=== PATIENT | male | born 1965 | race Caucasian/White ===

== ENCOUNTER 2018-08-16 17:55 | Observation (INO) | payer BC, OTHER ==
[~2018-08-16] VITALS: Ht 170.2 cm; Wt 86.2 kg
[~2018-08-16 17:55] MED LIST: ALBU8.5H2 IH; CEPH500C PO; CHOL10003 PO; FAMO20TA5; FEXO180T PO; FLUT1DIS27; FLUT1DIS27 IH; FOLI10PO5 MC; HYDR-34 PO; HYDR-3583 PO; HYDR1TAB PO; LEVO500T69 PO; METR375C PO; METR500T PO; MTX2.5T PO; NF-METHYLP PO; OMEG1CAP51 PO; PANT40TA2 PO; PRD20T; SMV20T PO; SULF1TAB38 PO; TEST90SO TD; TRAM-21 PO; XOLAIR INJ; ZOLAIR IM; [UNRECOGNIZED DRUG - OTHER] IJ; [UNRECOGNIZED DRUG - OTHER] PO
--- OUTSIDE RECORDS SUMMARY | 2018-08-16 18:00 | XMS REPORT | Encounter Summary ---
Author Author [facility] Organization [facility] Address Unknown Phone Unavailable Care Team Providers Care V Belt Mold Assembler And Curer Name Role Phone June Monteiro MD PCP Encounter Details Date Type Department Care Team Description 08/10/2018 Telephone [facility] Blanka Posada LPN [facility] [address] [facility] [address] [place] [address] Social History Tobacco Use Types Packs/Day Years Used Date Never Smoker Smokeless Tobacco: Never Used Sex Assigned at Date Recorded Not on file as of this encounter Miscellaneous Notes * Telephone Encounter - Blanka Posada LPN - 08/10/2018 3:27 PM CDT Spoke to patient this morning as his specialty pharmacy called to verify our address to ship his Xolair. Patient states his Xolair gets shipped to Dr. Weldon' s office. Patient will call his specilaty office to get redirected. in this encounter Plan of Treatment Date Type Specialty Care Team Description 08/24/2018 Imaging Pulmonology Appointment 08/24/2018 Office Visit Pulmonology Lowell Cronin MD [address] [facility] [address] [place] [address] [phone] as of this encounter Visit Diagnoses Not on filein this encounter
--- OUTSIDE RECORDS SUMMARY | 2018-08-16 18:00 | XMS REPORT | Encounter Summary ---
Author Author [facility] Organization [facility] Address Unknown Phone Unavailable Care Team Providers Care Upsetter Helper Name Role Phone June Monteiro MD PCP Reason for Visit * Reason Comments Medication Refill Encounter Details Date Type Department Care Team Description 08/15/2018 Refill [facility] Lowell Cronin MD Medication Refill [facility] [address] [place] [address] [address] [facility] [address] [place] [address] [place] [address] [phone] Social History Tobacco Use Types Packs/Day Years Used Date Never Smoker Smokeless Tobacco: Never Used Sex Assigned at Date Recorded Not on file as of this encounter Plan of Treatment Date Type Specialty Care Team Description 08/24/2018 Imaging Pulmonology Appointment 08/24/2018 Office Visit Pulmonology Lowell Cronin MD [address] [facility] [address] [place] [address] [phone] as of this encounter Visit Diagnoses Diagnosis Uncomplicated severe persistent asthma - Primary
--- OUTSIDE RECORDS SUMMARY | 2018-08-16 18:00 | XMS REPORT | Encounter Summary ---
Author Author [facility] Organization [facility] Address Unknown Phone Unavailable Care Team Providers Care Sales Engagement Manager Name Role Phone June Monteiro MD PCP Encounter Details Date Type Department Care Team Description 06/29/2018 Telephone [facility] Lowell Cronin MD [facility] [address] [place] [address] [place], [place] [id number] Social History Tobacco Use Types Packs/Day Years Used Date Never Smoker Smokeless Tobacco: Never Used Sex Assigned at Date Recorded Not on file as of this encounter Miscellaneous Notes * Telephone Encounter - Jennie Wong MA - 06/29/2018 3:55 PM CDT Pt stated that he gets his Xolair through [facility], our office handles the actual prescription. The [facility] pharmacy has a supply of sterile water and they would just need an order for it for pt to have for Dr. Weldon's office so he can get his Xolair shot. Order placed and sent to pharmacy. in this encounter Plan of Treatment Date Type Specialty Care Team Description 08/24/2018 Imaging Pulmonology Appointment 08/24/2018 Office Visit Pulmonology Lowell Cronin MD [address] [facility] [address] [place] [address] [phone] as of this encounter Visit Diagnoses Not on filein this encounter
--- OUTSIDE RECORDS SUMMARY | 2018-08-16 18:00 | XMS REPORT | Clinical Summary ---
Author Author [facility] Organization [facility] Address Unknown Phone Unavailable Care Team Providers Care Apparatus Repair Mechanic Name Role Phone June oMnteiro MD PCP Allergies Active Allergy Reactions Severity Noted Date Comments Aspirin Other (See Comments) 08/07/2015 breathing difficulties Solu-Medrol Mix-O-Vial 08/07/2015 Current Medications Prescription Sig. Disp. Refills Start End Date Status Date cholecalciferol, vitamin Take 1,000 Units by mouth Active D3, 1,000 unit tablet daily. omega 3 fish oil (SEA Take 1,000 mg by mouth 3 Active OMEGA) 500-1,000 mg (three) times a day. capsule traMADol (ULTRAM) 50 mg Take 50 mg by mouth every Active tablet 6 (six) hours as needed for pain. azelastine (ASTELIN) 137 Use 2 sprays in each 90 mL 3 03/02/20 Active mcg (0.1 %) nasal spray nostril 2 (two) times a 18 day. Use in each nostril as directed azithromycin (ZITHROMAX Take 1 tablet (250 mg 90 tablet 3 03/02/20 Active Z-CAITLIN) 250 MG tablet total) by mouth daily. 18 albuterol Inhale 2 puffs every 6 3 Inhaler 3 03/02/20 Active (PROAIR/PROVENTIL/VENTOLI (six) hours as needed for 18 N) 90 mcg/actuation HFA wheezing. inhalerIndications: Moderate persistent asthma without complication fluticasone-salmeterol Inhale 1 puff 2 (two) 180 each 3 03/02/20 Active (ADVAIR DISKUS) 500-50 times a day. 18 19 mcg/dose DISKUSIndications: Moderate persistent asthma without complication ipratropium-albuterol Inhale 3 mL via nebulizer 1080 mL 3 03/02/20 Active (DUO-NEB) 0.5-3 mg/3 mL 4 (four) times a day. 18 nebulizerIndications: Bronchi Muscle Spasm resulting from COPD methylPREDNISolone Take 0.5 tablets (4 mg 90 tablet 3 03/02/20 Active (MEDROL) 8 MG tablet total) by mouth daily. 18 Patient will take as directed. pantoprazole (PROTONIX) Take 1 tablet (40 mg 90 tablet 3 03/02/20 Active 40 MG tablet total) by mouth daily. 18 omalizumab (XOLAIR) 150 INJECT 375MG 6 vial 11 07/27/20 Active mg injectionIndications: SUBCUTANEOUSLY EVERY 2 18 Moderate persistent WEEKS asthma without complication water, sterile (STERILE Use for Xolair 20 mL 6 08/15/20 Active WATER, PRESERVATIVE injections. 18 FREE,) injectionIndications: Uncomplicated severe persistent asthma STERILE WATER, As directed for 02/13/20 08/15/20 Discontin PRESERVATIVE FREE, reconstitution for 14 18 ued injection Xolair. omalizumab (XOLAIR) 150 INJECT 375MG 6 vial 11 11/13/19 07/27/20 Discontin mg injectionIndications: SUBCUTANEOUSLY EVERY 2 18 18 ued Moderate persistent WEEKS asthma without complication Active Problems Problem Noted Date Uncomplicated severe persistent asthma 09/30/2016 Sleep apnea 08/07/2015 Resolved Problems Problem Noted Date Resolved Date Asthma 08/17/2012 12/16/2016 Overview: ICD-10 conversion Encounters Date Type Specialty Care Team Description 08/15/2018 Refill Pulmonology Lowell Cronin MD Medication Refill 08/10/2018 Telephone Pulmonology Blanka Posada LPN 08/08/2018 Telephone Pulmonology Lowell Cronin MD 06/29/2018 Telephone Pulmonology Lowell Cronin MD 06/13/2018 Documentation Pulmonology Lowell Cronin MD from Last 3 Months Immunizations Name Dates Previously Given Next Due Influenza QIV (IM) 09/15/2017, 08/07/2015 Influenza TIV (IM) 09/06/2016 Pneumococcal Conjugate 12/16/2016 13-Valent Pneumococcal 08/07/2015 Polysaccharide 23-Valent Family History Medical History Relation Name Comments Emphysema Mother Relation Name Status Comments Mother Social History Tobacco Use Types Packs/Day Years Used Date Never Smoker Smokeless Tobacco: Never Used Sex Assigned at Date Recorded Not on file Last Filed Vital Signs Vital Sign Reading Time Taken Blood Pressure 148/86 03/02/2018 7:51 AM CDT Pulse 58 03/02/2018 7:51 AM CDT Temperature 37 C (98.6 F) 05/19/2017 9:12 AM CDT Respiratory Rate 16 03/02/2018 7:51 AM CDT Oxygen Saturation 98% 03/02/2018 7:51 AM CDT Inhaled Oxygen - - Concentration Weight 83.9 kg (185 lb) 03/02/2018 7:51 AM CDT Height 170.2 cm (5' 7") 03/02/2018 7:51 AM CDT Body Mass Index 28.98 03/02/2018 7:51 AM CDT Plan of Treatment Date Type Specialty Care Team Description 08/24/2018 Imaging Pulmonology Appointment 08/24/2018 Office Visit Pulmonology Lowell Cronin MD [address] [place] [address] [phone] Health Maintenance Due Date Last Done Comments Hepatitis C Screen 1965 Td # 1965 Colorectal Screening via 2014 Colonoscopy Zoster Vaccine# (1 of 2) 2014 Influenza Vaccine (#1) 2018 09/15/2017, 09/06/2016, 08/07/2015 Spirometry # 03/09/2019 03/09/2018, 09/15/2017, 05/19/2017, Additional history exists Pneumococcal Immunization Completed 12/16/2016, 08/07/2015 19-64 Low/Medium Risk# Results Not on filefrom Last 3 Months
--- OUTSIDE RECORDS SUMMARY | 2018-08-16 18:00 | XMS REPORT | CCD ---
Author Author [facility] Unknown Address [address] [facility] [address] [place] [address] Care Team Providers Care [employer] Combat Skills Name Role Phone PRISCILLA BARRIOS, BECCA WALTON Attphys B., TRELL NASST A., [place] NASST F., ASHLEY NASST G., MAILE Hernandez NASST S., [place] NASST Allergies Allergy Code Allergy Type Reaction Status SOLU-MEDROL 052368 Drug allergy Active ASPIRIN 1191 Drug allergy Active Active Medications Medication Code Dose Units Frequency Route Modification Start Date/Time Advair Diskus 500/50 0.5MG-0.05MG/Actuati Inhalation Disk 712198 1 PUFF TWO TIMES A DAY INHALATION 2016 07:44 Prescription Detail 1 PUFF INHALATION TWO TIMES A DAY ALLERGY TABLET-24 HR 0 1 TABLET NEEDED DAILY ORAL 07/06/2017 07:44 Prescription Detail 1 TABLET ORAL NEEDED DAILY Fish Oil 1000MG Oral Capsule, Liquid Filled 501888 6470 MILLIGRAMS THREE TIMES A DAY ORAL 07/06/2017 07: 44 Prescription Detail 1000 MILLIGRAMS ORAL THREE TIMES A DAY methylPREDNISolone 8MG Oral Tablet 553244 8 MILLIGRAMS DAILY DIRECTED ORAL 07/06/2017 07:44 Prescription Detail 8 MILLIGRAMS ORAL DAILY DIRECTED Pantoprazole Sodium 40MG Oral Tablet, Enteric Coated 739468 40 MILLIGRAMS DAILY ORAL 07/06/2017 07:44 Prescription Detail 40 MILLIGRAMS ORAL DAILY ProAir HFA 0.09MG/1Actuation Inhalation Suspension 329826 2 PUFF NEEDED EVERY 6 HR INHALATION 2016 07:44 Prescription Detail 2 PUFF INHALATION NEEDED EVERY 6 HR Vitamin D 2000 IU Oral Capsule, Liquid Filled 02129851107 2000 IU DAILY ORAL 07/06/2017 07:44 Prescription Detail 2000 IU ORAL DAILY HYDROcodone bitartrate-acetaminophen 10MG-325MG Oral Tablet 317485 1/2 - 1 TABLET NEEDED EVERY 4 HR BY MOUTH FOR PAIN 07/06/2017 07:42 Prescription Detail 1/2 - 1 TABLET BY MOUTH NEEDED EVERY 4 HR FOR PAIN Thera-M Enhanced 90MG-0.03MG-0.15MG-4 Oral Tablet 145972 1 TABLET DAILY BY MOUTH 07/06/2017 07:42 Prescription Detail 1 TABLET BY MOUTH DAILY traMADol HCl 50MG Oral Tablet 773155 50 MILLIGRAMS NEEDED ORAL 07/06/2017 07:42 Prescription Detail 50 MILLIGRAMS ORAL NEEDED don't take with hydrocodone Xarelto 10MG Oral Tablet 0691955 1 TABLET DAILY BY MOUTH 07/06/2017 07:42 Prescription Detail 1 TABLET BY MOUTH DAILY for ten days Docusate Sodium 100MG Oral Capsule, Liquid Filled 3072483 1 TABLET TWO TIMES A DAY BY MOUTH 07/06/2017 07: 41 Prescription Detail 1 TABLET BY MOUTH TWO TIMES A DAY as needed for loose stools Problems Problem Code Start Date Resolved Date Status Status post hip replacement 302780640732 Active Post op pain 283199718 Active Sleep apnea 61126862 Active Procedures Procedure Code Procedure Type Date Replacement of Left Hip Joint with Ceramic Synthetic Substitute, Uncemente [id number] ICD-10 PCS 07/05/2017 PT GROUP THERAPY 145610985 SNOMED CT 07/06/2017 PT GAIT TRAINING/STAIRS EA [address] 07/06 OT ADL TRAINING/POSITIONING EA 15MIN 303390377 SNOMED CT 07/06/2017 OT EVAL; LOW 015972527 SNOMED CT 07/06/2017 PT EVALUATION; LOW 832652056 SNOMED CT 07/05/2017 HIP [address] 07/05/2017 CBC W/ AUTO DIFF (RFLX MAN DIFF IF IND) 4230737 SNOMED CT 07/06/2017 THERAPEP TREATMENT SUBSEQUENT 707872413 SNOMED CT 2016 THERAPEP TREATMENT SUBSEQUENT 663348225 SNOMED CT 2016 THERAPEP TREATMENT SUBSEQUENT 040695713 SNOMED CT 2016 THERAPEP TREATMENT SUBSEQUENT 181547890 SNOMED CT 2016 THERAPEP TREATMENT SUBSEQUENT 162760696 SNOMED CT 2016 THERAPEP TREATMENT INITIAL 067480963 SNOMED CT 07/05/2017 ^CBC W/AUTO DIFF 1440533 SNOMED CT 07/06/2017 Results CBC W/ AUTO DIFF (RFLX MAN DIFF IF IND) - Collect Date/Time: 07/06/2017 05:55 Test Name Code Test Result Test Units Test Ref Range WBC 07258-8 15.6 TH/CMM L=4.5 H=10.8 RBC 789-8 4.49 ML/CMM L=4.70 H=6.10 HGB 718-7 11.8 G/DL L=14.0 H=18.0 HCT 4544-3 38.5 % L=42.0 H=52.0 MCV 40174-0 86 FL L=81 H=99 MCH 51984-9 26.3 PG L=27.0 H=33.0 MCHC 47539-3 30.6 G/DL L=31.0 H=36[place]0 [place] [address]-7 46 FL L=36 H=50 [place] [address]-9 14.6 % L=0.0 H=14.8 MPV 02842-6 10.0 FL L=9.3 H=12.5 PLT 777-3 251 TH/CMM L=130 H=440 NRBC# 08832-9 0.00 TH/CMM L=0.00 H=0.00 NRBC% 89885-7 0.0 /100WBC L=0.0 H=2.0 %NEUT 59041-7 77.1 % %LYMP 75590-0 12.1 % %MONO 36763-7 9.8 % %EOS 36624-8 0.3 % %BASO 19174-7 0.1 % #NEUT 43500-0 12.01 TH/CMM L=2.10 H=8.20 #LYMP 61987-2 1.88 TH/CMM L=0.90 H=5.20 #MONO 22575-6 1.52 TH/CMM L=0.16 H=1.00 #EOS 05073-8 0.05 TH/CMM L=0.00 H=0.80 #BASO 95803-6 0.01 TH/CMM L=0.00 H=0.20 MANUAL DIFF 92995-1 NOT IND N/A Function Status Unknown or Not Available. History of Immunizations Immunization Code Date influenza, split (incl. purified surface antigen) 15 08/30/1999 influenza, split (incl. purified surface antigen) 15 09/04/2002 Pneumococcal conjugate PCV 13 133 12/16/2016 Influenza, seasonal, injectable, preservative free 140 2015 Plan of Treatment Unknown or Not Available. Social History Smoking Status Code Start Date End Date Never smoker 212563978 Vital Signs Vital Sign Value Unit Date/Time Recent/Initial? BP Systolic 130 mm[Hg] 06/19/2017 15:04 Initial VS BP Diastolic 80 mm[Hg] 06/19/2017 15:04 Initial VS Respiratory Rate 20 /min 06/19/2017 15:04 Initial VS Heart Rate 66 /min 06/19/2017 15:04 Initial VS O2 % BldC Oximetry 97 % 06/19/2017 15:04 Initial VS Body Temperature 97.9 [degF] 06/19/2017 15:04 Initial VS BMI (Body Mass Index) 28.97 kg/m2 07/04/2017 14:57 Initial VS Weight Measured 185 [lb_av] 07/04/2017 14:57 Initial VS Height 67 [in_i] 07/04/2017 14:57 Initial VS BSA (Body Surface Area) 1.99 m2 07/04/2017 14:57 Initial VS BP Systolic 109 mm[Hg] 07/06/2017 15:21 Most Recent VS BP Diastolic 69 mm[Hg] 07/06/2017 15:21 Most Recent VS Respiratory Rate 20 /min 07/06/2017 15:21 Most Recent VS Heart Rate 73 /min 07/06/2017 15:21 Most Recent VS O2 % BldC Oximetry 97 % 07/06/2017 15:21 Most Recent VS Body Temperature 98.6 [degF] 07/06/2017 15:21 Most Recent VS Function Status Unknown or Not Available. Goals Unknown or Not Available. ASSESSMENTS Unknown or Not Available. Health Concerns Section Unknown or Not Available.
--- OUTSIDE RECORDS SUMMARY | 2018-08-16 18:00 | XMS REPORT | Encounter Summary ---
Author Author [facility] Organization [facility] Address Unknown Phone Unavailable Care Team Providers Care Filter Cleaner Name Role Phone June Monteiro MD PCP Encounter Details Date Type Department Care Team Description 08/08/2018 Telephone [facility] Pulmonary Lowell Cronin MD Specialists [address] [place] [address] [place] [address] [phone] Social History Tobacco Use Types Packs/Day Years Used Date Never Smoker Smokeless Tobacco: Never Used Sex Assigned at Date Recorded Not on file as of this encounter Miscellaneous Notes * Telephone Encounter - Jennie WongFAVIOLA - 08/08/2018 1:22 PM [facility] called in regards to pt's dosing on his Xolair script. Informed pharmacist that pt has been on Xolair since 2013 and dosing has not changed ever. Informed pharmacist that pt did have updated insurance recently, to which she reached out to the plan to let them know new insurance is on file and to see if a PA is needed due to having new insurance. Plan will rerun information on file and will fax or contact our office regarding if needed PA. BERNARDO CIFUENTES in this encounter Plan of Treatment Date Type Specialty Care Team Description 08/24/2018 Imaging Pulmonology Appointment 08/24/2018 Office Visit Pulmonology Lowell Cronin MD [address] [facility] [place] [address] [place] [address] [phone] as of this encounter Visit Diagnoses Not on filein this encounter
--- OUTSIDE RECORDS SUMMARY | 2018-08-16 18:00 | XMS REPORT ---
Author Author AKASH VALENTINO Organization [facility] Address [address] [place] [address] Phone Unavailable Care Team Providers Care Inspector Outside Steam Distribution Name Role Phone AKASH VALENTINO Unavailable Unavailable PROBLEMS Unknown Problems ALLERGIES No Information ENCOUNTERS Encounter Location Date Diagnosis [facility] [address] [facility] [id number] [place] [address] Jun, Encounter for immunization Z23 IMMUNIZATIONS Vaccine Route Administration Date Status TDAP (BOOSTRIX) IM Intramuscular Jul 04, 2018 Administered HEP B (ADULT) IM Intramuscular Jul 04, 2018 Administered SOCIAL HISTORY Never Assessed REASON FOR VISIT Pt is wanting Hep B and Tdap Injections.TRAVIS PLAN OF CARE VITAL SIGNS MEDICATIONS Unknown Medications RESULTS No Results PROCEDURES Procedure Date Ordered Result Body Site HEP B (ADULT) Jul 04, 2018 TDAP (BOOSTRIX) Jul 04, 2018 IMMUNIZATION ADMIN, EACH ADD (please include units) Jul 04, 2018 SINGLE IMMUNIZATION ADMIN Jul 04, 2018 INSTRUCTIONS MEDICATIONS ADMINISTERED No Known Medications
--- OUTSIDE RECORDS SUMMARY | 2018-08-16 18:00 | XMS REPORT | Encounter Summary ---
Author Author Organization Address Unknown Phone Unavailable Care Team Providers Care Pecan Huller Name Role Phone June Monteiro MD PCP Encounter Details Date Type Department Care Team Description 06/13/2018 Documentation [facility] Lowell Cronin MD [facility] [address] [place] [address] [address] [place] [address] [place] [address] [phone] Social History Tobacco Use Types Packs/Day Years Used Date Never Smoker Smokeless Tobacco: Never Used Sex Assigned at Date Recorded Not on file as of this encounter Progress Notes * Lowell Cronin MD - 06/13/2018 11:51 AM CDT I have been asked to provide surgical clearance for Mr. Marcelo. I have followed him for several years regarding his severe persistent asthma. I feel his therapy is maximized. His FEV1 is 43% predicted and his anesthesiologist should be aware of this. His exercise capacity is good. His situation was uncomplicated at last visit. He is at higher risk for surgical complications given his severe persistent asthma requiring multiple medications including chronic systemic glucocorticoids. His chronic steroids could impair wound healing. Despite these risks, there is no clear contraindication to proceeding with knee surgery from a pulmonary standpoint. Please feel free to call with questions. Electronically signed by Lowell Cronin MD 06/13/2018 in this encounter Plan of Treatment Date Type Specialty Care Team Description 08/24/2018 Imaging Pulmonology Appointment 08/24/2018 Office Visit Pulmonology Lowell Cronin MD [address] [address] [phone] as of this encounter Visit Diagnoses Not on filein this encounter
--- OUTSIDE RECORDS SUMMARY | 2018-08-16 18:01 | XMS REPORT | Continuity of Care Document ---
Author Author [facility] Organization [facility] Address Unknown Phone Unavailable Care Team Providers Care Blind Installer Name Role Phone NILS BISHOP MD PP Insurance Providers Payer Name Policy Number Subscriber Name Relationship UMR [id number] Guillermo Marcelo Gerry Self / Same As Patient Advance Directives Directive Response Recorded Date Advance Directives N 07/08/13 9:45pm Health Care Power of Brick And Tile Making Machine Operator N 07/08/13 9:45pm Organ Donor Y 07/08/13 9:45pm Problems No Known Problems or Medical conditions. Family History History Response Recorded Date/Time Hx Family Cancer N 07/08/13 9:58pm Hx Family Cardiac Disorders Y 07/08/13 9: 58pm Hx Family Myocardial Infarction Y [email or web address] 07/08/13 9:58pm Social History History Response Recorded Date/Time Alcohol Use Denies Use 07/08/13 9:58pm Recreational Drug Use N 07/08/13 9:58pm Sexually Transmitted Disease N 07/08/13 9 :58pm Allergies, Adverse Reactions, Alerts Allergen Type Severity Reaction Last Updated methylprednisolone sod succ Allergy vomiting 10/15/12 aspirin Allergy Mild INDUCES ASTHMA 10/16/09 Medications Medication Dose Units Route Sig Qty Days Metronidazole (Flagyl 375 Mg) 1 Each PO BID 10 Levofloxacin (Levaquin 500 Mg) 1 Each PO DAILY 5 [place]-3 Fatty Acids/Fish Oil (Fish Oil 1,000 Mg Softgel) 1000 Mg PO TID [Xolair] INJ EVERY 2 WEEKS Testosterone (Axiron) 2 Appful TD DAILY Salmeterol Xinafoate/Fluticasone (Advair 500 Mcg/50 Mcg 60's) 1 Puff IH BID Albuterol (Proair Hfa) 2 Puff IH QID PRN Cholecalciferol (Vitamin D) 1000 Unit PO DAILY Fexofenadine HCl (Adriana) 180 Mg PO DAILY Tramadol Hcl (Ultram) 50 Mg PO QID PRN [Zolair] 1 IM EVERY 2 WEEKS Levofloxacin (Levaquin 500 Mg) 1 Each PO DAILY [zolain] IJ biweekly Salmeterol Xinafoate/Fluticasone (Advair 500 Mcg/50 Mcg 60's) Acetaminophen/Hydrocodone Bitart (Vicodin 5-500 Tablet) 1 - 2 Each PO Q4HR PRN 10 Trimethoprim/Sulfamethoxazole (Bactrim Ds) 1 Ea PO BID 7 Metronidazole (Flagyl 500 Mg) 1 Each PO QID 7 Methotrexate 1 Each PO ONCE A WEEK Folic Acid 10 Gm MC Immunizations Name Given Type Date of Pneumonia Vaccine 11/06/08 H Date of Influenza Vaccine 08/06/12 H Response Recorded Date/Time Status not known Unknown Results Test Date Result Interp. Ref. Range Alanine Aminotransferase (ALT/SGPT) July 08, 2013 7: 50pm 44 U/L N 30-65 Albumin July 08, 2013 7:50pm 3.8 G/ DL N 3.4-5.0 Alkaline Phosphatase July 08, 2013 7:50pm 99 U/L N 50-136 Chris Test February 05, 2013 5:10pm POSITIVE - Anisocytosis July 08, 2013 7:50pm SLIGHT - Arterial Blood Base Excess February 05, 2013 5:10pm 0.7 MMOL/L N -2.5-2.5 Arterial Blood HCO3 February 05, 2013 5:10pm 25 MMOL/L N 23-27 Arterial Blood Oxygen Saturation February 05, 2013 5:10pm 97 % N 94-100 Arterial Blood Partial Pressure CO2 February 05, 2013 5:10pm 40 MMHG N 35-45 Arterial Blood Partial Pressure O2 February 05, 2013 5:10pm 79 MMHG N 79-93 Arterial Blood Total CO2 February 05, 2013 5:10pm 26.5 MMOL/L N 21.0-31.0 Arterial Blood pH February 05, 2013 5:10pm 7.42 N 7.37-7.43 Aspartate Amino Transf (AST/SGOT) July 08, 2013 7:50pm 16 U/L N 15-37 BUN/Creatinine Ratio July 08, 2013 7:50pm 13 - Band Neutrophils July 08, 2013 7:50pm 0 % - Basophils # (Auto) July 08, 2013 7:50pm 0.0 10^3/uL N 0.0-0.1 Basophils % (Manual) July 08, 2013 7:50pm 0 % - Basophils (%) (Auto) July 08, 2013 7:50pm 0 % N 0-10 Blood Gas Inspired Oxygen February 05, 2013 5:10pm ROOM AIR - Blood Gas Patient Temperature February 05, 2013 5:10pm 98.3 - Blood Gas Puncture Site February 05, 2013 5:10pm RT. RADIAL - Blood Gas Ventilator Setting February 05, 2013 5:10pm NO - Blood Urea Nitrogen July 08, 2013 7:50pm 13 MG/DL N 7-18 C-Reactive Protein October 15, 2012 5:30am 19.8 MG/DL H 0.2-0.9 Calcium Level July 08, 2013 7:50pm 9.1 MG/DL N 8.5-10.1 Carbon Dioxide Level July 08, 2013 7:50pm 29 MMOL/L N 21-32 Chloride Level July 08, 2013 7:50pm 100 MMOL/L L 101-110 Creatinine July 08, 2013 7:50pm 1.0 MG/DL N 0.6-1.3 Eosinophils # (Auto) July 08, 2013 7:50pm 0.1 10^3/uL N 0.0-0.3 Eosinophils % (Manual) July 08, 2013 7:50pm 1 % - Eosinophils (%) (Auto) July 08, 2013 7:50pm 1 % N 0-10 Glucose Level July 08, 2013 7:50pm 94 MG/DL N 74-106 Hematocrit July 08, 2013 7:50pm 47 % N 40-54 Hemoglobin July 08, 2013 7:50pm 15.3 G/DL N 13.3-17.7 Lipase July 08, 2013 7:50pm 106 U/ L N 73-393 Lymphocytes # (Auto) July 08, 2013 7:50pm 1.8 X 10^3 N 1.0-4.0 Lymphocytes % (Manual) July 08, 2013 7:50pm 8 % - Lymphocytes (%) (Auto) July 08, 2013 7:50pm 12 % N 12-44 Macrocytosis July 08, 2013 7:50pm SLIGHT - Mean Corpuscular Hemoglobin July 08, 2013 7:50pm 28 PG N 25-34 Mean Corpuscular Hemoglobin Concent July 08, 2013 7: 50pm 32 G/DL N 32-36 Mean Corpuscular Volume July 08, 2013 7:50pm 85 FL N 80-99 Mean Platelet Volume July 08, 2013 7:50pm 10.1 FL N 7.4-10.4 Monocytes # (Auto) July 08, 2013 7:50pm 1.4 X 10^3 H 0.0-1.0 Monocytes % (Manual) July 08, 2013 7:50pm 10 % - Monocytes (%) (Auto) July 08, 2013 7:50pm 9 % N 0-12 Neutrophils # (Auto) July 08, 2013 7:50pm 11.7 X 10^3 H 1.8-7.8 Neutrophils % (Manual) July 08, 2013 7:50pm 74 % - Neutrophils (%) (Auto) July 08, 2013 7:50pm 78 % H 42-75 Platelet Count July 08, 2013 7:50pm 230 10^3/uL N 130-400 Potassium Level July 08, 2013 7:50pm 3.4 MMOL/L L 3.6-5.0 Reactive Lymphocytes July 08, 2013 7:50pm 7 % - Red Blood Count July 08, 2013 7:50pm 5.53 10^6/uL N 4.35-5.85 Red Cell Distribution Width July 08, 2013 7:50pm 14.7 % H 10.0-14.5 Sodium Level July 08, 2013 7:50pm 135 MMOL/L N 135-145 Stomatocytes July 08, 2013 7:50pm SLIGHT - Total Bilirubin July 08, 2013 7:50pm 0.6 MG/DL N 0.0-1.0 Total Protein July 08, 2013 7:50pm 7.3 G/DL N 6.4-8.2 Urine Bacteria October 13, 2012 12:15pm FEW /HPF H - Urine Bilirubin October 13, 2012 12:15pm NEGATIVE - Urine Casts October 13, 2012 12:15pm NONE /LPF - Urine Clarity October 13, 2012 12:15pm very cloudy - Urine Color October 13, 2012 12:15pm YELLOW - Urine Crystals October 13, 2012 12:15pm NONE /LPF - Urine Culture Indicated October 13, 2012 12:15pm YES - Urine Glucose (UA) October 13, 2012 12:15pm NEGATIVE - Urine Ketones October 13, 2012 12:15pm NEGATIVE - Urine Leukocyte Esterase October 13, 2012 12:15pm 2+ H - Urine Mucus October 13, 2012 12:15pm NEGATIVE /LPF - Urine Nitrite October 13, 2012 12:15pm NEGATIVE - Urine Protein October 13, 2012 12:15pm TRACE - Urine RBC October 13, 2012 12:15pm 10- 25 /HPF H - Urine Specific [place] October 13, 2012 12:15pm 1.015 L - Urine Squamous Epithelial Cells October 13, 2012 12:15pm RARE /HPF - Urine Urobilinogen October 13, 2012 12:15pm NORMAL MG/DL - Urine WBC October 13, 2012 12:15pm TNTC /HPF H - Urine pH October 13, 2012 12:15pm 6.5 - White Blood Count July 08, 2013 7:50pm 15.0 10^3/uL H 4.3-11.0 Ur Neisseria gonorrhoeae DNA (PCR) October 13, 2012 12: 15pm - Estimat Glomerular Filtration Rate July 08, 2013 7: 50pm > 60 - Blood Morphology Comment October 13, 2012 11:25am NORMAL - Urine Chlamydia/GC DNA Probe October 13, 2012 12:15pm - Urine RBC (Auto) October 13, 2012 12:15pm 4+ H - Procedures Procedure Code Date UPPER GI ENDOSCOPY BIOPSY 01396 09/25/09 LAPAROSCOPY FUNDOPLASTY 88092 10/23/09 UPPR GI ENDOSCOPY DIAGNOSIS 09747 DRAIN/INJECT JOINT/BURSA 10/31/12 DRAIN/INJECT JOINT/BURSA 62524 02/27/13 Blood Culture 10/13/12 MRSA Screen 02/27/13 Urine Culture 10/13/12 Encounters Encounter Location Date/Time Admitted Inpatient [facility] 9:14pm Discharged Inpatient [facility] 2:43pm Departed Emergency Room [facility] 05/17 6:34pm
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
--- OUTSIDE RECORDS SUMMARY | 2018-08-16 18:01 | XMS REPORT | Continuity of Care Document ---
Author Author [facility] Organization [facility] Address Unknown Phone Unavailable Care Team Providers Care Theatrical Performer Name Role Phone NILS BISHOP MD PP Insurance Providers Payer Name Policy Number Subscriber Name Relationship UMR [id number] Guillermo Marcelo Gerry Self / Same As Patient Advance Directives Directive Response Recorded Date Advance Directives N 07/08/13 9:45pm Health Care Power of Market Risk Analyst N 07/08/13 9:45pm Organ Donor Y 07/08/13 [...] 500 Mg) 1 Each PO DAILY 5 [place]-3 Fatty Acids/Fish Oil (Fish Oil 1,000 Mg [...] ONCE A WEEK Folic Acid 10 Gm Immunizations Name Given Type Date of Pneumonia Vaccine 11/06/08 H Date of Influenza Vaccine 08/06/12 H Response Recorded Date/Time Status not known Unknown Results No Known Relevant Diagnostic Tests, Laboratory Data and/or Discharge Summary. Procedures Procedure Code Date UPPER GI ENDOSCOPY BIOPSY 48021 09/25/09 LAPAROSCOPY FUNDOPLASTY 96722 10/23/09 UPPR GI ENDOSCOPY DIAGNOSIS 67391 DRAIN/INJECT JOINT/BURSA 69718 10/31/12 DRAIN/INJECT JOINT/BURSA 73070 02/27/13 Encounters Encounter Location Date/Time Discharged Inpatient [facility] 8:51pm Departed Emergency Room [facility] 05/17 6:34pm
[2018-08-16] MEDS ORDERED: L.E.T. SYRINGE 5 ML TOP ONE (18:15)
[2018-08-16] MEDS ORDERED: cefTRIAXone FOR IV USE 1,000 MG in NS (IVPB) 50 ML IV ONE (18:30)
[2018-08-16] MEDS ORDERED: VANCOMYCIN INJECTION 1,000 MG in NS (IVPB) 250 ML IV ONE (18:30)
--- NOTE | 2018-08-16 18:32 | ED General ---
General Chief Complaint: Skin/Wound Problems Stated Complaint: R LEG INNER THIGH SWELLING/REDNESS Nursing Triage Note: PT STATES HAVING AN ABSCESS IN THE RT GROIN AREA. Nursing Sepsis Screen: No Definite Risk Source of Information: Patient Exam Limitations: No Limitations History of Present Illness Date Seen by Provider: Aug 16, 2018 Time Seen by Provider: 18:08 Initial Comments This 52-year-old gentleman presents to the emergency room with swelling, erythema, pain, and redness in the right inguinal area. It is spreading to the surrounding skin including the right scrotum. He is febrile but was unaware of fever. Symptoms have been worsening over 3 days. He denies any history of abscess. He has an apparent abscess of about 2 x 1 cm in the right inguinal fold. He denies any other symptoms at this time. Temperature was 100.1. Allergies and Home Medications Allergies Coded Allergies: aspirin (Unverified Allergy, Mild, INDUCES ASTHMA, 10/16/09) methylprednisolone sod succ (Verified Adverse Reaction, Mild, vomiting, ) Home Medications Albuterol 8.5 Gm Hfa.aer.ad, 2 PUFF IH QID PRN, (Reported) NEEDED FOR SHORTNESS OF BREATH Cholecalciferol 1,000 Unit Tablet, 1,000 UNIT PO DAILY, (Reported) Fexofenadine Hcl 180 Mg Tablet, 180 MG PO DAILY, (Reported) Fluticasone/Salmeterol 1 Disk Inhp, 1 PUFF IH BID, (Reported) Methylprednisolone 4 Mg Tab, 4 MG PO TID, (Reported) Orosi-3 Fatty Acids/Fish Oil 1 Each Capsule, 1,000 MG PO TID, (Reported) Pantoprazole Sodium 40 Mg Tablet.dr, 40 MG PO DAILY Prescribed by: JENNIFER GOLDMAN on 03/18/16 1502 Tramadol Hcl 50 Mg Tablet, 50 MG PO QID PRN, (Reported) NEEDED FOR PAIN [Xolair] , INJ EVERY 2 WEEKS, (Reported) Patient Home Medication List Home Medication List Reviewed: Yes Review of Systems Review of Systems Constitutional: see HPI EENTM: no symptoms reported Respiratory: no symptoms reported Cardiovascular: no symptoms reported Gastrointestinal: no symptoms reported Genitourinary: no symptoms reported Musculoskeletal: no symptoms reported Skin: see HPI Psychiatric/Neurological: No Symptoms Reported Hematologic/Lymphatic: No Symptoms Reported Immunological/Allergic: no symptoms reported Past Epgxemk-Kwdthe-Fnhcch Hx Past Med/Social Hx: Reviewed Nursing Past Med/Soc Hx Patient Social History Alcohol Use: Denies Use Recreational Drug Use: No Smoking Status: Never a Smoker Recent Foreign Travel: No Contact w/Someone Who Travel: No Recent Infectious Disease Expo: No Recent Hopitalizations: No Immunizations Up To Date Date of Pneumonia Vaccine: Sep 07, 2015 Date of Influenza Vaccine: Oct 02, 2016 Seasonal Allergies Seasonal Allergies: Yes Past Medical History Surgeries: Yes (shoulder scope, nasal polyps removed, LT HIP REPLACEMENT) Orthopedic Respiratory: Yes Asthma, Sleep Apnea Cardiac: No Neurological: No Reproductive Disorders: No Sexually Transmitted Disease: No Gastrointestinal: Yes Diverticulosis Musculoskeletal: Yes Fibromyalgia Endocrine: No HEENT: No Cancer: No Psychosocial: No Integumentary: No Blood Disorders: No Physical Exam-Suspected Sepsis Physical Exam Vital Signs Vital Signs - First Documented 08/16/18 18:09 Temp 100.1 Pulse 72 Resp 20 B/P (MAP) 134/79 (97) Pulse Ox 97 O2 Delivery Room Air Capillary Refill : Less Than 3 Seconds Blood Pressure Mean: 97 Height, Weight, BMI Height: 5'7.00" Weight: 185lbs. 0.0oz. [id number]; 27.4 BMI Method:Stated General Appearance: No Apparent Distress, WD/WN HEENT: PERRL/EOMI, Normal ENT Inspection Neck: Normal Inspection Respiratory: Lungs Clear, Normal Breath Sounds, No Accessory Muscle Use, No Respiratory Distress Cardiovascular: Regular Rate, Rhythm, No Edema, No Murmur Gastrointestinal: Normal Bowel Sounds, Non Tender, Soft Extremity: Normal Capillary Refill, Other (by 2 cm abscess in the right gluteal fold. There is surrounding erythema and warmth that extends to the thigh, lower abdomen, and scrotum.) Neurologic/Psychiatric: Alert, Oriented x3, No Motor/Sensory Deficits, Normal Mood/Affect, body team member II-XII Norm as Tested Skin: warm/dry, other (see above) Focused Exam Lactate Level 08/16/18 18:30: Lactic Acid Level 1.20 Lactic Acid Level Laboratory Tests Test 08/16/18 18:30 Lactic Acid Level 1.20 MMOL/L (0.50-2.00) Procedures/Interventions I&D : Blade Size: 10 Progress LET was applied as topical anesthetic. Skin was cleaned with alcohol. Incision was made directly over the top of the abscess. There is immediate expression of a large amount of foul smelling purulent material. Culture was obtained. Progress/Results/Core Measures Suspected Sepsis Recent Fever Within 48 Hours: Yes Infection Criteria Present: Suspected New Infection New/Unexplained Altered Menta: No Sepsis Screen: No Definite Risk SIRS Temperature:100.1 Pulse: 72 Respiratory Rate: 20 Laboratory Tests 08/16/18 18:30: White Blood Count 8.3 Blood Pressure 134 /79 Mean: 97 08/16/18 18:30: Lactic Acid Level 1.20 Laboratory Tests 08/16/18 18:30: Creatinine 0.92, INR Comment 1.0, Platelet Count 306, Total Bilirubin 0.4 Results/Orders Lab Results Laboratory Tests Test 08/16/18 18:30 Range/Units White Blood Count 8.3 4.3-11.0 10^3/uL Red Blood Count 5.07 4.35-5.85 10^6/uL Hemoglobin 13.9 13.3-17.7 G/DL Hematocrit 43 40-54 % Mean Corpuscular Volume 84 80-99 FL Mean Corpuscular Hemoglobin 27 25-34 PG Mean Corpuscular Hemoglobin Concent 33 32-36 G/DL Red Cell Distribution Width 14.5 10.0-14.5 % Platelet Count 306 130-400 10^3/uL Mean Platelet Volume 10.0 7.4-10.4 FL Neutrophils (%) (Auto) 55 42-75 % Lymphocytes (%) (Auto) 31 12-44 % Monocytes (%) (Auto) 12 0-12 % Eosinophils (%) (Auto) 1 0-10 % Basophils (%) (Auto) 0 0-10 % Neutrophils # (Auto) 4.6 1.8-7.8 X 10^3 Lymphocytes # (Auto) 2.6 1.0-4.0 X 10^3 Monocytes # (Auto) 1.0 0.0-1.0 X 10^3 Eosinophils # (Auto) 0.1 0.0-0.3 10^3/uL Basophils # (Auto) 0.0 0.0-0.1 10^3/uL Prothrombin Time 13.6 12.2-14.7 SEC INR Comment 1.0 0.8-1.4 Activated Partial Thromboplast Time 28 24-35 SEC Sodium Level 139 135-145 MMOL/L Potassium Level 3.7 3.6-5.0 MMOL/L Chloride Level 106 98-107 MMOL/L Carbon Dioxide Level 22 21-32 MMOL/L Anion Gap 11 5-14 MMOL/L Blood Urea Nitrogen 15 7-18 MG/DL Creatinine 0.92 0.60-1.30 MG/DL Estimat Glomerular Filtration Rate > 60 BUN/Creatinine Ratio 16 Glucose Level 130 H 70-105 MG/DL Lactic Acid Level 1.20 0.50-2.00 MMOL/L Calcium Level 9.8 8.5-10.1 MG/DL Corrected Calcium 9.4 8.5-10.1 MG/DL Total Bilirubin 0.4 0.1-1.0 MG/DL Aspartate Amino Transf (AST/SGOT) 19 5-34 U/L Alanine Aminotransferase (ALT/SGPT) 28 0-55 U/L Alkaline Phosphatase 69 40-136 U/L Total Protein 7.6 6.4-8.2 GM/DL Albumin 4.5 3.2-4.5 GM/DL My Orders Orders - DIANE VALIENTE MD Cbc With Automated Diff (08/16/18 18:14) Comprehensive Metabolic Panel (08/16/18 18:14) Blood Culture (08/16/18 18:14) Protime With Inr (08/16/18 18:14) Partial Thromboplastin Time (08/16/18 18:14) Saline Lock/Iv-Start (08/16/18 18:14) Saline Lock/Iv-Start (08/16/18 18:14) O2 (08/16/18 18:14) Remove Rings In Anticipation O (08/16/18 18:14) Lactic Acid Analyzer (08/16/18 18:14) Let Solution (Let Solution) (08/16/18 18:15) Wound Culture (08/16/18 18:14) Ceftriaxone For Iv Use (Rocephin For I (08/16/18 18:30) Vancomycin Injection (Vancomycin Injecti (08/16/18 18:30) Medications Given in ED Current Medications Medications Dose Ordered Sig/Dragan Route Start Time Stop Time Status Last Admin Dose Admin Ceftriaxone Sodium 1000 mg/ Sodium Chloride 50 ml @ 100 mls/hr ONCE ONCE IV 08/16/18 18:30 08/16/18 18:59 DC 08/16/18 18:48 100 MLS/HR Tetracaine/ Epinephrine/ Lidocaine 1 ea ONCE ONCE TOP 08/16/18 18:15 08/16/18 18:17 DC 08/16/18 18:24 1 EA Vancomycin HCl 1000 mg/Sodium Chloride 250 ml @ 250 mls/hr ONCE ONCE IV 08/16/18 18:30 08/16/18 19:29 DC 08/16/18 19:23 250 MLS/HR Vital Signs/I&O 08/16/18 08/16/18 18:09 21:17 Temp 100.1 100.1 Pulse 72 72 Resp 20 14 B/P (MAP) 134/79 (97) 122/73 (89) Pulse Ox 97 97 O2 Delivery Room Air Capillary Refill : Less Than 3 Seconds Blood Pressure Mean: 97 Progress Note #1: Time: 18:31 Progress Note Patient seen and examined. Septic workup is being pursued. LET has been applied for topical anesthesia of the abscess before incision and drainage. Blood cultures have been drawn. Wound culture will be obtained before vancomycin and Rocephin are initiated. Progress Note #2: Time: 19:36 Progress Note Incision and drainage was performed of the right groin abscess. A significant amount of thin purulent foul-smelling material was expressed. Cultures were obtained. Patient has received Rocephin and vancomycin is infusing. I discussed admission with the patient. We will admit for observation. Patient did not technically meet sepsis criteria but his cellulitis is in a high risk area. Bedside ultrasound was performed after incision and drainage. Abscess did not appear to extend beyond the immediate superficial region that was incised and drained. Departure Communication (Admissions) Time/Spoke to Admitting Phy: 19:30 Dr. Mahoney Impression Primary Impression: Abscess or cellulitis of groin Disposition: ADMITTED INPATIENT Condition: Improved Admissions Decision to Admit Reason: Admit from ER (General) Decision to Admit/Date: Aug 16, 2018 Time/Decision to Admit Time: 19:25 Departure-Patient Inst. Referrals: NILS BISHOP MD (PCP/Family) Primary Care Physician DIANE VALIENTE MD Aug 16, 2018 18:32
[2018-08-16 18:56] LABS: BASOPHILS % (AUTO) 0 % (0-10); EOSINOPHILS # (AUTO) 0.1 10^3/uL (0.0-0.3); EOSINOPHILS % (AUTO) 1 % (0-10); HEMATOCRIT 43 % (40-54); HEMOGLOBIN 13.9 G/DL (13.3-17.7); LYMPHOCYTES # (AUTO) 2.6 X 10^3 (1.0-4.0); LYMPHOCYTES % (AUTO) 31 % (12-44); MEAN CORPUSCULAR HEMOGLOBIN 27 PG (25-34); MEAN CORPUSCULAR HGB CONC 33 G/DL (32-36); MEAN CORPUSCULAR VOLUME 84 FL (80-99); MONOCYTES % (AUTO) 12 % (0-12); NEUTROPHILS # (AUTO) 4.6 X 10^3 (1.8-7.8); NEUTROPHILS % (AUTO) 55 % (42-75); PLATELET COUNT 306 10^3/uL (130-400); RED BLOOD COUNT 5.07 10^6/uL (4.35-5.85); RED CELL DISTRIBUTION WIDTH 14.5 % (10.0-14.5); WHITE BLOOD COUNT 8.3 10^3/uL (4.3-11.0)
[2018-08-16 19:01] LABS: PROTHROMBIN TIME PATIENT 13.6 SEC (12.2-14.7)
[2018-08-16 19:08] LABS: ALANINE AMINOTRANSFERASE 28 U/L (0-55); ALBUMIN 4.5 GM/DL (3.2-4.5); ALKALINE PHOSPHATASE 69 U/L (40-136); BILIRUBIN,TOTAL 0.4 MG/DL (0.1-1.0); BUN/CREATININE RATIO 16; CALCIUM 9.8 MG/DL (8.5-10.1); CARBON DIOXIDE 22 MMOL/L (21-32); CHLORIDE 106 MMOL/L (98-107); CREATININE SERUM 0.92 MG/DL (0.60-1.30); GFR ESTIMATED > 60; GLUCOSE 130 MG/DL (70-105); POTASSIUM 3.7 MMOL/L (3.6-5.0); SODIUM 139 MMOL/L (135-145); TOTAL PROTEIN 7.6 GM/DL (6.4-8.2)
[2018-08-16] MEDS ORDERED: fentaNYL INJECTION 100 MCG/2 ML AMP IV PRN (22:00)
[2018-08-16] MEDS ORDERED: HYDROcodone/APAP 5 MG/325 MG (LORTAB) TAB PO PRN (22:00)
[2018-08-16] MEDS ORDERED: ONDANSETRON 4 MG/2 ML (SDV) Z0FRAN IV PRN (22:00)
[2018-08-17] VITALS (7 sets, daily range): BP systolic 112–140; BP diastolic 64–80
[2018-08-17 05:59] LABS: BASOPHILS % (AUTO) 1 % (0-10); EOSINOPHILS # (AUTO) 0.1 10^3/uL (0.0-0.3); EOSINOPHILS % (AUTO) 2 % (0-10); HEMATOCRIT 42 % (40-54); HEMOGLOBIN 13.2 G/DL (13.3-17.7); LYMPHOCYTES # (AUTO) 2.4 X 10^3 (1.0-4.0); LYMPHOCYTES % (AUTO) 42 % (12-44); MEAN CORPUSCULAR HEMOGLOBIN 27 PG (25-34); MEAN CORPUSCULAR HGB CONC 32 G/DL (32-36); MEAN CORPUSCULAR VOLUME 85 FL (80-99); MEAN PLATELET VOLUME 9.5 FL (7.4-10.4); MONOCYTES # (AUTO) 1.1 X 10^3 (0.0-1.0); MONOCYTES % (AUTO) 19 % (0-12); NEUTROPHILS # (AUTO) 2.1 X 10^3 (1.8-7.8); NEUTROPHILS % (AUTO) 37 % (42-75); PLATELET COUNT 284 10^3/uL (130-400); RED BLOOD COUNT 4.86 10^6/uL (4.35-5.85); RED CELL DISTRIBUTION WIDTH 14.5 % (10.0-14.5); WHITE BLOOD COUNT 5.8 10^3/uL (4.3-11.0)
[2018-08-17 06:21] LABS: BUN/CREATININE RATIO 14; CARBON DIOXIDE 23 MMOL/L (21-32); CHLORIDE 109 MMOL/L (98-107); CREATININE SERUM 0.76 MG/DL (0.60-1.30); GFR ESTIMATED > 60; GLUCOSE 113 MG/DL (70-105); POTASSIUM 3.9 MMOL/L (3.6-5.0); SODIUM 141 MMOL/L (135-145)
[2018-08-17 06:59] LABS: EOSINOPHILS % (MANUAL) 1 %; LYMPHOCYTES % (MANUAL) 30 %; MONOCYTES % (MANUAL) 20 %; NEUTROPHILS % (MANUAL) 38 %; REACTIVE LYMPHOCYTES 11 %
[2018-08-17] MEDS ORDERED: FLU QUADRIvalent (5+ YOA) 2018-2019 (AFLURIA) 0.5 ML IM ONE (07:00)
[2018-08-17] MEDS ORDERED: VANCOMYCIN 2000 MG/NS 500 ML IVPB IV NR ×2 (08:00)
[2018-08-17] MEDS ORDERED: TRAM50TA2 PO (08:54)
[2018-08-17] MEDS ORDERED: FLUT1DIS27 IH (08:55)
[2018-08-17] MEDS ORDERED: FEXO-46 PO (08:55)
[2018-08-17] MEDS ORDERED: CHOL10007 PO (08:55)
[2018-08-17] MEDS ORDERED: PANT40TA2 PO (08:55)
[2018-08-17] MEDS ORDERED: RT-ALBUINH IH (08:55)
[2018-08-17] MEDS ORDERED: OMEG-77 PO (08:55)
[2018-08-17] MEDS ORDERED: AZIT250T12 PO (08:55)
[2018-08-17] MEDS ORDERED: METH8TAB5 PO (08:55)
[2018-08-17] MEDS ORDERED: DOCU-244 PO (08:55)
[2018-08-17] MEDS ORDERED: ACETAMINOPHEN 500 MG TAB (TYLENOL) PO PRN (11:00)
--- NOTE | 2018-08-17 11:12 | History & Physical-Hospitalist ---
History of Present Illness HPI/Chief Complaint Pt is a 52yoCM with a PMH of severe persistent asthma on chronic daily steroids who presented to the ER with swelling of his thigh. This started 2-3 days ago from what he thought was a bug bite. It started to get better and then last night the redness and swelling worsened and was streaking down his leg. He decided to seek evaluation at that time where he was found to have a large abscess which was drained in the ER and cultures were obtained. He was admitted for observation for antibiotics given the extensive spread. He reports feeling better today and that the area is much improved. Source: patient Date Seen 08/17/18 Time Seen by a Provider: 11:02 Attending Physician Charles Mahoney MD PCP June Monteiro MD Referring Physician Date of Admission Aug 16, 2018 at 9:13 pm Home Medications & Allergies Home Medications Reviewed patient Home Medication Reconciliation performed by pharmacy medication reconciliations certified surgical technician and/or nursing. Patients Allergies have been reviewed. Allergies Allergies Coded Allergies aspirin (Unverified Allergy, Mild, INDUCES ASTHMA, 10/16/09) methylprednisolone sod succ (Verified Adverse Reaction, Mild, vomiting, ) Past Socrwfc-Gtcrcs-Flzgnq Hx Past Med/Social Hx: Reviewed Nursing Past Med/Soc Hx Patient Social History Alcohol Use: Denies Use Recreational Drug Use: No Smoking Status: Never a Smoker Physical Abuse Screen: No Sexual Abuse: No Recent Foreign Travel: No Contact w/other who traveled: No Recent Hopitalizations: No Recent Infectious Disease Expo: No Immunizations Up To Date Date of Pneumonia Vaccine: Sep 07, 2015 Date of Influenza Vaccine: Oct 02, 2016 Seasonal Allergies Seasonal Allergies: Yes Past Medical History Surgeries: Appendectomy, Nose (nasal polyps), Orthopedic Respiratory: Asthma Currently Using CPAP: No Currently Using BIPAP: No Reproductive: No Sexually Transmitted Disease: No Gastrointestinal: Diverticulosis Musculoskeletal: Fibromyalgia Loss of Vision: Denies Hearing Impairment: Denies History of Blood Disorders: No Family History Reviewed Nursing Family Hx No Pertinent Family Hx Review of Systems Constitutional: No chills, No fever EENTM: No blurred vision, No double vision, No nose congestion, No throat pain Respiratory: No cough, No dyspnea on exertion, No short of breath Cardiovascular: No chest pain, No edema, No palpitations Gastrointestinal: No abdominal pain, No constipation, No diarrhea, No nausea, No vomiting Genitourinary: No dysuria, No frequency Musculoskeletal: No joint pain, No muscle pain Skin: see HPI Psychiatric/Neurological: Denies Headache, Denies Numbness, Denies Tingling Physical Exam Physical Exam Vital Signs Vital Signs - First Documented 08/16/18 18:09 Temp 100.1 Pulse 72 Resp 20 B/P (MAP) 134/79 (97) Pulse Ox 97 O2 Delivery Room Air Capillary Refill : Less Than 3 Seconds Height, Weight, BMI Height: 5'7.00" Weight: 190lbs. 0.0oz. 86.831297zf; 29.8 BMI Method:Stated General Appearance: No Apparent Distress, WD/WN HEENT: PERRL/EOMI, Moist Mucous Membranes Neck: Non Tender, Supple Respiratory: Lungs Clear, No Respiratory Distress Cardiovascular: Regular Rate, Rhythm, No Murmur Gastrointestinal: Normal Bowel Sounds, Non Tender, Soft Extremity: Normal Capillary Refill, No Calf Tenderness Neurologic/Psychiatric: Alert, Oriented x3, Normal Mood/Affect Skin: Erythema (well within demarcation from ER- right groin) Results Results/Procedures Labs Laboratory Tests 08/16/18 18:30 08/17/18 05:45 Patient resulted labs reviewed. Assessment/Plan Admission Diagnosis Abscess and Cellulitis Admission Status: Observation Diagnosis/Problems Diagnosis/Problems (1) Abscess or cellulitis of groin Status: Acute Assessment & Plan: Drained in ER Does not meet sepsis criteria Await culture results given extensive spread Continue on Vanc and Rocephin (2) Asthma Assessment & Plan: Continue on home meds No signs of exacerbation at this time MAT Protocol Qualifiers: Asthma severity: severe Asthma persistence: persistent Asthma complication type: uncomplicated Qualified Codes: J45.50 - Severe persistent asthma, uncomplicated Clinical Quality Measures DVT/VTE Risk/Contraindication: Risk Factor Score Per Nursin RFS Level Per Nursing on Admit: 2=Moderate SANDRA KNAPP MD Aug 17, 2018 11:11 am
[2018-08-17] MEDS ORDERED: RT-ALBUTEROL SULF 2.5 MG/3 ML PRE-MIX VIAL INH PRN (12:00)
[2018-08-17] MEDS ORDERED: cefTRIAXone 1 GM/NS 50 ML IVPB IV SCH ×2 (18:30)
[2018-08-17] MEDS: ADVAIR IH SCH (18:51)
[2018-08-17] MEDS ORDERED: RT-ALBUTEROL HFA (VENTOLIN) PER PUFF IH PRN (19:15)
[2018-08-17] MEDS ORDERED: PATIENT MAY USE OWN MEDS, ALL MC SCH (19:15)
[2018-08-17] MEDS: VANCOMYCIN 1500 MG/NS 500 ML IVPB IV SCH ×2 (19:38)
[2018-08-17] MEDS ORDERED: RT-ADVAIR HFA 115/21 MCG PER PUFF IH SCH (20:00)
[2018-08-18] VITALS: BP 125/65
[2018-08-18] MEDS: ADVAIR IH SCH (06:33)
[2018-08-18] MEDS ORDERED: PANTOPRAZOLE 40 MG (PROTONIX) TAB PO SCH (07:00)
[2018-08-18 08:00] VITALS: BP 128/74
[2018-08-18] MEDS: VANCOMYCIN 1500 MG/NS 500 ML IVPB IV SCH ×2 (08:10)
[2018-08-18] MEDS ORDERED: METHYLPREDNISOLONE 8 MG PO SCH (09:00)
[2018-08-18] MEDS ORDERED: LORATADINE (CLARITIN) 10 MG TAB PO SCH (09:00)
[2018-08-18] MEDS ORDERED: AZITHROMYCIN 250 MG TAB (ZITHROMAX) PO SCH ×2 (09:00)
[2018-08-18] MEDS ORDERED: FEXOFENADINE 180 MG (ALLEGRA) TAB (NON-FORMULARY) PO SCH (09:00)
[2018-08-18] MEDS ORDERED: predniSONE 5 MG TAB PO SCH (09:00)
--- NOTE | 2018-08-18 11:22 | Discharge Summary-Hospitalist ---
Diagnosis/Chief Complaint Date of Admission Aug 16, 2018 at 21:40 Date of Discharge Discharge Date: Aug 18, 2018 Admission Diagnosis Abscess and Cellulitis Discharge Diagnosis (1) Abscess or cellulitis of groin Status: Acute Assessment & Plan: Drained in ER Does not meet sepsis criteria Await culture results given extensive spread Continue on Vanc and Rocephin (2) Asthma Assessment & Plan: Continue on home meds No signs of exacerbation at this time MAT Protocol Discharge Summary Discharge Physical Exam Allergies: Coded Allergies: aspirin (Unverified Allergy, Mild, INDUCES ASTHMA, 10/16/09) methylprednisolone sod succ (Verified Adverse Reaction, Mild, vomiting, ) Vitals & I&Os Vital Signs Date Time Temp Pulse Resp B/P (MAP) Pulse Ox O2 Delivery O2 Flow Rate FiO2 08/18/18 08:00 97.4 63 20 128/74 (92) 97 Room Air General Appearance: No Apparent Distress, WD/WN Extremity: Other (nearly resolved erythema of medial thigh) Neurologic/Psychiatric: Alert, Oriented x3 Hospital Course Pt was admitted for abscess and cellulitis of thr right groin. This was drained in the ER and he was admitted for IV abx. He repsonded well to this and had an uneventful hospital stay. Blood cultures were negative as was a wound cultures from the I&D site. He was discharged home on antibiotics and advised to take a probiotic with it as well. He is to follow up with Dr Bishop in 1 week. Labs (last 24 hrs) Microbiology 08/16/18 Blood Culture - Preliminary, Resulted No growth Patient resulted labs reviewed. Discussion & Recommendations Discharge Planning: >30 minutes discharge planning Discharge Home Medications: Active Scripts Active Reported Dok (Docusate Sodium) 100 Mg Capsule 100 Mg PO BID PRN Protonix (Pantoprazole Sodium) 40 Mg Tablet.dr 40 Mg PO DAILY Azithromycin 250 Mg Tablet 250 Mg PO DAILY Methylprednisolone 8 Mg Tablet 4 Mg PO DAILY TAKES 1/2 (8MG) TABLET Fish Oil 1,000 mg Softgel (Spivey-3 Fatty Acids/Fish Oil) 1 Each Capsule 1,000 Mg PO TID Advair 500-50 Diskus (Fluticasone/Salmeterol) 1 Each Blst.w.dev 1 Puff IH BID Proair Hfa (Albuterol Sulfate) 1 Puff Puff 2 Puff IH Q4H PRN 1 PUFF = 90 MCG Vitamin D3 (Cholecalciferol (Vitamin D3)) 1,000 Unit Capsule 1,000 Unit PO DAILY Fexofenadine HCl 180 Mg Tablet 180 Mg PO DAILY Tramadol HCl 50 Mg Tablet 50-100 Mg PO Q6H PRN [Xolair] INJ EVERY 2 WEEKS Instructions to patient/family Please see electronic discharge instructions given to patient. Clinical Quality Measures DVT/VTE Risk/Contraindication: Risk Factor Score Per Nursin RFS Level Per Nursing on Admit: 2=Moderate Copy Copies To 1: NILS BISHOP MD Problem Qualifiers (1) Asthma: Asthma severity: severe Asthma persistence: persistent Asthma complication type: uncomplicated Qualified Codes: J45.50 - Severe persistent asthma, uncomplicated SANDRA KNAPP MD Aug 18, 2018 11:22
[2018-08-18] MEDS ORDERED: LACT1CAP62 PO (11:24)
[2018-08-18] MEDS ORDERED: SULF1TAB35 PO (11:24)
--- NOTE | 2018-08-18 11:26 | Discharge Inst-Simple/Standard ---
Discharge Inst-Standard Discharge Medications New, Converted or Re-Newed RX: Transmitted to Pharmacy Patient Instructions/Follow Up Plan of Care/Instructions/FU: Please continue to take your medications as written even if you feel better. Please follow up with Dr Monteior next week to followup this hospital stay. Activity as Tolerated: Yes Discharge Diet: No Restrictions Return to The Hospital For: Fever, worsening pain, redness, drainage, or if you feel you are getting worse. SANDRA KANPP MD Aug 18, 2018 11:26
[2018-08-18] MEDS ORDERED: TROUGH ORDER-PHARMACY XX NR (19:00)
[2018-08-19] MEDS ORDERED: PANTOPRAZOLE 40 MG (PROTONIX) TAB PO SCH (07:00)
== END 2018-08-18 11:28 | disposition home or self-care (01) ==
LOC: EDUNIT# 17:55 → ER 17:56 → 4TH 21:13 → UNDOADMOB 21:13 → 4TH 21:40
PROVIDERS: ADMIT Internal Medicine; ATTEND Internal Medicine
DX: L02.214 Cutaneous abscess of groin (principal); J45.50 Severe persistent asthma, uncomplicated; G47.30 Sleep apnea, unspecified; M79.7 Fibromyalgia; Z79.52 Long term (current) use of systemic steroids; Z79.899 Other long term (current) drug therapy
CPT/HCPCS: 10060; 36415; 80048; 80053; 83605; 85007; 85025; 85027; 85610; 85730; 87040; 87070; 87077; 87205; 94640; 94760; 96361; 96365; G0378

== ENCOUNTER 2019-06-14 10:15 | Outpatient (CLI) | payer BC ==
[~2019-06-14] VITALS: Ht 170.2 cm; Wt 86.2 kg
[~2019-06-14 10:15] MED LIST changes: +AZIT250T12 PO; +CHOL10007 PO; +DOCU-244 PO; +FEXO-46 PO; +LACT1CAP62 PO; +METH8TAB5 PO; +OMEG-77 PO; +RT-ALBUINH IH; +SULF1TAB35 PO; +TRAM50TA2 PO
[2019-06-14] MEDS ORDERED: IPRA3AMP31 IH (10:48)
[2019-06-14] MEDS ORDERED: ERYT-95 PO (10:48)
[2019-06-14] MEDS ORDERED: ATOR20TA66 PO (10:48)
== END 2019-06-14 10:54 ==
LOC: PREOP 10:15
PROVIDERS: ATTEND Orthopaedic Surgery
DX: Z01.818 Encounter for other preprocedural examination (principal); M94.262 Chondromalacia, left knee

== ENCOUNTER 2019-06-19 08:53 | Day surgery (SDC) | payer BC ==
--- NOTE | 2019-06-10 18:36 | HISTORY AND PHYSICAL ---
DATE OF SERVICE: ADMISSION HISTORY AND PHYSICAL This will be for outpatient surgery 06/19/2019, for left knee arthroscopy. HISTORY OF PRESENT ILLNESS: The patient is a 53-year-old gentleman with complaints of left knee pain. He reports that he has had several week history of worsening left anterior knee pain with catching, locking and swelling. He reports this after being worked on a where he had to kneel a lot. He reports its catching. He reports activity limitations because of the knee. He denies any appreciable problems prior to this other than some aches and pains at times. REVIEW OF SYSTEMS: No chest pain, no shortness of breath, no dysuria. PAST MEDICAL HISTORY: Bronchitis, asthma, diverticulitis, arthritis. PAST SURGICAL HISTORY: Appendectomy, carpal tunnel release, rotator cuff repair, nasal polyp excision, thump and hip injections as well as total hip arthroplasty. FAMILY HISTORY: Coronary artery disease, diabetes. PRIMARY CARE PROVIDER: Dr. Monteiro. MEDICATIONS: Xolair, Advair, methylprednisolone, fexofenadine, tramadol, ProAir, hydrocodone, Adriana, and Pantoprazole. ALLERGIES: SOLU-MEDROL AND ASPIRIN. SOCIAL HISTORY: The patient denies alcohol use. RADIOGRAPHS: Reveal no significant degenerative changes, no acute changes. PHYSICAL EXAMINATION: GENERAL: The patient is a well-developed, well-nourished, in no acute distress. HEENT: Normocephalic, atraumatic. Pupils are equal, round and reactive to light. Oropharynx is clear. NECK: Supple, no lymphadenopathy. LUNGS: Clear to auscultation bilaterally. HEART: Regular rate and rhythm. ABDOMEN: Soft, nontender, nondistended. EXTREMITIES: The left knee demonstrates some moderate effusion. He has marked patellofemoral crepitus and has a catching noted when moving from flexion to extension at approximately 20 degrees. There is no varus valgus laxity, no joint line tenderness. Negative straight leg raise. No pain with hip range of motion. IMPRESSION: Left knee chondromalacia of the patella. PLAN: Left knee arthroscopy with chondroplasty. The risks, benefits, options, ramifications and recovery were discussed at length with the patient. He understands and wishes to proceed. Job ID: [id number] DocumentID: [id number] Dictated Date: 06/10/2019 08:12:31 Water Softener Servicer And Installer Date: 06/10/2019 10:37:43 Dictated By: KEHINDE PEGUERO MD
[~2019-06-19] VITALS: Ht 170.2 cm; Wt 86.2 kg
[2019-06-19] VITALS (12 sets, daily range): BP systolic 122–159; BP diastolic 65–95
[~2019-06-19 08:53] MED LIST changes: +ATOR20TA66 PO; +ERYT-95 PO; +IPRA3AMP31 IH
--- NOTE | 2019-06-19 09:01 | Progress Note-Pre Operative ---
Pre-Operative Progress Note H&P Reviewed The H&P was reviewed, patient examined and no changes noted. Date Seen by Provider: Jun 19, 2019 Time Seen by Provider: 09:00 Date H&P Reviewed: Jun 19, 2019 Time H&P Reviewed: 09:00 Pre-Operative Diagnosis: left chondromalacia of the patella KEHINDE PEGUERO MD Jun 19, 2019 09:01
--- NOTE | 2019-06-19 09:02 | Progress Note-Post Operative ---
Post-Operative Progess Note Surgeon (s)/Power Builder Developer (s) Surgeon KEHINDE PEGUERO MD Power Builder Developer: Kenroy Hopson Pre-Operative Diagnosis left chondromalacia of the patella Post-Operative Diagnosis left knee medial meniscal tear and chondromalacia of the medial femoral condyle and trochlea Procedure & Operative Findings Date of Procedure 06/19/19 Procedure Performed/Findings left knee arthroscopic partial medial femoral condyle and chondroplasty of the medial femoral condyle and trochlea Anesthesia Type GETA Estimated Blood Loss Estimated blood loss (mL): minimal Specimens/Packing Specimens Removed none Packing: none KEHINDE PEGUERO MD Jun 19, 2019 09:02
[2019-06-19] MEDS ORDERED: LACTATED RINGERS 1,000 ML IV PRN (09:10)
[2019-06-19] MEDS ORDERED: ONDANSETRON 4 MG/2 ML (SDV) Z0FRAN ONE (09:14)
[2019-06-19] MEDS ORDERED: DEXAMETHASONE 10 MG/ML (DECADRON) 1 ML VIAL ONE (09:14)
[2019-06-19] MEDS ORDERED: LIDOCAINE PF 2% 5 ML (XYLOCAINE) VIAL ONE (09:14)
[2019-06-19] MEDS ORDERED: SEVOFLURANE (ULTANE) 15 ML INHAL SOLN ONE (09:14)
[2019-06-19] MEDS ORDERED: proPOfol 200 MG/20 ML (DIPRIVAN) VIAL IV ONE (09:14)
[2019-06-19] MEDS ORDERED: MIDAZOLAM 2 MG/2 ML (VERSED) VIAL ONE (09:15)
[2019-06-19] MEDS ORDERED: HYDROcodone/APAP 7.5 MG/325 MG (LORTAB, LORCET PLUS) TABLET PO PRN (09:15)
[2019-06-19] MEDS ORDERED: fentaNYL INJECTION 100 MCG/2 ML AMP ONE ×2 (09:15→11:01)
[2019-06-19] MEDS ORDERED: FAMOTIDINE 20MG/2ML IV (PEPCID) IVP ONE (09:15)
[2019-06-19] MEDS ORDERED: morphine PF (DURAMORPH) 10 MG/10 ML AMP ONE (09:19)
[2019-06-19] MEDS ORDERED: BUPIVACAINE 0.5% 30 ML (SENSORCAINE) VIAL ONE (09:19)
[2019-06-19] MEDS ORDERED: FAMOTIDINE 20MG/2ML IV (PEPCID) ONE (09:22)
[2019-06-19] MEDS ORDERED: ceFAZolin 1,000 MG/SWFI 10 ML IV PUSH IV ONE ×2 (09:45)
[2019-06-19] MEDS ORDERED: morphine INJ 10 MG/ML 1ML (SYR OR VIAL) IVP ONE (10:45)
[2019-06-19] MEDS ORDERED: MEPERIDINE (DEMEROL) INJ 50 MG/ML IVP ONE (10:45)
[2019-06-19] MEDS ORDERED: PROMETHAZINE INJ 25 MG/ML (PHENERGAN) AMP IVP ONE (10:45)
[2019-06-19] MEDS ORDERED: ONDANSETRON 4 MG/2 ML (SDV) Z0FRAN IVP PRN (10:45)
[2019-06-19] MEDS ORDERED: fentaNYL INJECTION 100 MCG/2 ML AMP IVP ONE (11:30)
[2019-06-19] MEDS ORDERED: HYDR-3816 PO (12:00)
--- NOTE | 2019-06-19 13:50 | Physical Therapy Ortho Eval ---
PT Orthopedic Evaluation Type of Surgery Knee Scope (left) Prior Level of Function Current Living Status: Spouse Locomotion (Upon Admit): Independent Established Durable Medical Eq: Front Wheeled Walker, Crutches Subjective Subjective Agrees to PT Entry Into Home: Stairs Without Railing Motor Control Motor Control: Motor Control WNL ROM ROM: WFL, except focal deficit (left knee limited ROM) Strength Strength: WFL Transfer Transfers (B, C, W/C) (FIM): 6 Gait Gait Assistive Device: FWW Right Lower Extremity: Right Weight Bearing Status RLE: Full Weight Bearing Left Lower Extremity: Left Weight Bearing Status LLE: Weight Bearing/Tolerated Gait (FIM): 6 Distance (FIM): 3=150 ft Distance: 150 Gait Level of Assist: 6 Summary/Comments safe and steady with FWW and without; instruction provided on use of cane or crutches if he desired. Stair training provided as well. SAfe gait and stair ambulation. Treatment Rendered Treatment: Therapeutic Exercises, Gait Train, Step Train Exercise Instruction: Quad Sets, Straight Leg Raise, Heel Slides Assessment/Goals Goal Time Frame: 1 Visit Understands HEP: Yes Safe Ambulation: Yes Plan Treatment Plan: Discharge PT/Family Agrees to Plan: Yes Time Time In: 1240 Time Out: 1300 Total Billed Treatment Time: 20 Billed Treatment Time visit EVL 20 KEVIN MICHELLE PT Jun 19, 2019 13:50
--- NOTE | 2019-06-19 15:20 | OPERATIVE REPORT ---
DATE OF SERVICE: 06/19/2019 PREOPERATIVE DIAGNOSIS: Left knee chondromalacia of the patella. POSTOPERATIVE DIAGNOSES: 1. Left knee medial meniscus tear. 2. Left knee chondromalacia of the medial femoral condyle. 3. Left knee chondromalacia of the trochlea. PROCEDURES: 1. Left knee partial medial meniscectomy. 2. Left knee arthroscopic chondroplasty of the trochlea. 3. Left knee arthroscopic chondroplasty of the medial femoral condyle. SURGEON: Damian Alexander MD SOFTWARE TECHNICIAN: Kenroy Hopson, who assisted throughout the procedure and closed the incisions. ANESTHESIA: General endotracheal by Miguel Montanez CRNA. TOURNIQUET TIME: Not applicable. ESTIMATED BLOOD LOSS: Minimal. DRAINS: None. COMPLICATIONS: None. POSTOPERATIVE PLAN: Routine arthroscopy protocol. The patient was transferred to the recovery room awake and in stable condition. STATEMENT OF MEDICAL NECESSITY: The patient is a 53-year-old gentleman with complaints of left knee pain, catching, locking and swelling. He had pain with patellar loading with a moderate effusion noted. He failed to respond to conservative measures including injections, anti-inflammatories and rest. Due to functional impairment and failure to improve with conservative measures, the patient elected to proceed with surgical intervention Examination under anesthesia revealed range of motion of 0/0/135 with negative Luanne, negative anterior and posterior drawer. No varus valgus laxity and a negative pivot shift. Arthroscopic findings, the patella demonstrated grade I chondral softening with no unstable chondral flaps. Trochlea demonstrated grade III chondral flap in a 20 x 20 area. The medial and lateral gutters were clear. The lateral compartment demonstrated no meniscal or chondral pathology. The ACL and PCL were intact. The medial compartment demonstrated a complex tear of the posterior horn and body of the medial meniscus involving approximately 1/2 posterior horn and body. In addition, there were grade II chondral flaps in central portion of the weightbearing aspect of the medial femoral condyle in a 15 x 10 area. PROCEDURE: After risks and benefits of procedure were discussed and questions were answered, an informed consent was signed and placed on chart, the operative site was confirmed in the preoperative holding area initialed by the surgeon. The patient was then transferred to the operating room. After adequate levels of general endotracheal anesthetic were obtained, a timeout was called, confirming the operative site. Examination under anesthesia was performed with above findings noted. The left lower extremity was prepped and draped in the usual sterile fashion. The knee joint was injected with 60 mL of fluid and a standard inferolateral portal was placed for the arthroscope under direct visualization, inferior medial portal was created. The menisci, cruciates carefully probed with the above findings noted. The unstable chondral flaps on the trochlea were debrided with shaver back to a stable edge. Scope was redirected into the medial compartment with unstable medial meniscus tear, was debrided with a biter, and shaver removing approximately 1/2 posterior horn and body. This was carefully probed with no further tearing or instability noted. The unstable chondral flaps on the medial femoral condyle were debrided with shaver back to a stable edge as well. The knee was copiously irrigated. Port sites were closed with 4-0 nylon in simple interrupted fashion. Knee was injected with Duramorph. The portal sites were infiltrated with plain Marcaine. A soft dressing was applied and the patient was transferred to the recovery room awake and in stable condition. Job ID: [id number] DocumentID: [id number] Dictated Date: 06/19/2019 10:34:51 Concert Singer Date: 06/19/2019 15:19:30 Dictated By: DAMIAN ALEXANDER MD
== END 2019-06-19 13:10 | disposition home or self-care (01) ==
LOC: SDC 08:53
PROVIDERS: ATTEND Orthopaedic Surgery
DX: S83.242A Other tear of medial meniscus, current injury, left knee, initial encounter (principal); M94.262 Chondromalacia, left knee; M19.90 Unspecified osteoarthritis, unspecified site; J45.909 Unspecified asthma, uncomplicated; J40 Bronchitis, not specified as acute or chronic; K21.9 Gastro-esophageal reflux disease without esophagitis; G47.33 Obstructive sleep apnea (adult) (pediatric); K57.92 Diverticulitis of intestine, part unspecified, without perforation or abscess without bleeding; E78.5 Hyperlipidemia, unspecified; Z99.89 Dependence on other enabling machines and devices; Z82.49 Family history of ischemic heart disease and other diseases of the circulatory system; Z83.3 Family history of diabetes mellitus; Z88.6 Allergy status to analgesic agent; Z88.8 Allergy status to other drugs, medicaments and biological substances
CPT/HCPCS: 87081

== ENCOUNTER 2019-10-22 05:39 | Outpatient (CLI) | payer BC ==
[~2019-10-22] VITALS: Ht 170.2 cm; Wt 81.8 kg
[~2019-10-22 05:39] MED LIST changes: +HYDR-3816 PO
== END 2019-10-22 14:54 | disposition home or self-care (01) ==
LOC: PREOP 05:39
PROVIDERS: ATTEND Surgery
DX: Z01.818 Encounter for other preprocedural examination (principal)

== ENCOUNTER → 2021-12-24 | Outpatient (CLI) | payer BC ==
[~2021-12-24] MED LIST changes: +DOCU-239 PO; -DOCU-244 PO; -HYDR-3816 PO; -SULF1TAB35 PO; -TRAM50TA2 PO; +TRM50T PO
== END ==
LOC: CARD 12:00
PROVIDERS: ATTEND Internal Medicine Cardiovascular Disease
DX: I08.1 Rheumatic disorders of both mitral and tricuspid valves (principal); I11.9 Hypertensive heart disease without heart failure; I25.10 Atherosclerotic heart disease of native coronary artery without angina pectoris
CPT/HCPCS: 93306

== ENCOUNTER → 2022-01-24 | Outpatient (CLI) | payer BC ==
[~2022-01-24] VITALS: Ht 170 cm; Wt 81.0 kg
[~2022-01-24] MED LIST changes: +REGADENOSON 0.4 MG/5 ML SYR (LEXISCAN) IV ONE
[2022-01-24] MEDS: CATHETER FLUSH 10 ML SYR IVP PRN ×2 (07:12→08:56)
[2022-01-24 08:54] VITALS: BP 144/86
--- NOTE | 2022-01-24 10:58 | Cardiology Stress Test Report ---
Stress Test Report Date of Procedure/Referring: Date of Procedure: Jan 24, 2022 PCP Pankaj Asher MD Admitting Physician June Monteiro MD Indications: HTN Baseline Heart Rate: 61 Baseline Blood Pressure: Blood Pressure Systolic: 144 Blood Pressure Diastolic: 86 Baseline Vitals Vital Signs Date Time Temp Pulse Resp B/P (MAP) Pulse Ox O2 Delivery O2 Flow Rate FiO2 01/24/22 08:54 60 20 144/86 (105) Room Air Baseline EKG: Baseline EKG: NSR Summary After explaining the procedure to the patient, he signed a consent and then brought to the stress nuclear laboratory. Patient received 0.4 mg Lexiscan for stress test, ECG, heart rate and blood pressure were monitored continuously. Resting and stress dose of radio tracer w ere injected, imaging was acquired and reviewed in short axis, horizontal long axis and vertical long axis views. TID: 1.08 SSS: 1 SDS: 1 EF: 50 1. Patient tolerated Lexiscan well 2. Diaphragmatic attenuation with typical male pattern, no significant ischemia or infarction on SPECT images 3. Normal left ventricular size, EF 50% PANKAJ ASHER MD Jan 24, 2022 10:58
== END ==
LOC: CARD 07:30
PROVIDERS: ATTEND Internal Medicine Cardiovascular Disease
DX: I10 Essential (primary) hypertension (principal); I25.10 Atherosclerotic heart disease of native coronary artery without angina pectoris
CPT/HCPCS: 78452; 93017; A9502

== ENCOUNTER → 2022-12-20 | Outpatient (CLI) | payer BC ==
[~2022-12-20] MED LIST changes: +ALBU8.5H6 IH; +ERYT-126 PO; -ERYT-95 PO; -FEXO-46 PO; +NF-ALLE180 PO; -REGADENOSON 0.4 MG/5 ML SYR (LEXISCAN) IV ONE; -RT-ALBUINH IH
--- NOTE | 2022-12-20 17:02 | Diagnostic Imaging Report ---
INDICATION: 57-year-old male with long-term use of steroids. COMPARISON: None available FINDINGS: AP Spine L1-L4: [BMD (g/cm2): 1.202] [T-Score: -0.3] [Z-Score: -0.2] [BMD Previous: NA] [BMD % Change: NA] RT Hip Neck: [BMD (g/cm2):0.934] [T-Score:-1.0] [Z-Score:-0.3] RT Hip Total: [BMD (g/cm2):0.976] [T-score:-0.9] [Z-Score:-0.5] [BMD Previous:NA] [BMD % Change:NA] *Indicates significant change from prior examination based on 95% confidence level. World Health Organization criteria for BMD interpretation classify patients as Normal (T-score at or above -1.0), Osteopenic (T-score between -1.0 and -2.5) or Osteoporotic (T-score at or below -2.5). LIMITATIONS AND MODIFICATION: Left total hip arthroplasty. FRACTURE RISK (FRAX SCORE): Not applicable. IMPRESSION: 1. Normal bone mineral density. 2. Baseline examination. 3. See below National Osteoporosis Foundation guidelines on when to potentially initiate pharmacologic therapy. Based on the National Osteoporosis Foundation Guidelines, pharmacologic treatment should be initiated in any of the following, unless clinical conditions suggest otherwise: * Any patient with prior fragility fracture of the hip or vertebrae. A spine fracture indicates 5X risk for subsequent spine fracture and 2X risk for subsequent hip fracture. * Osteoporosis (T-score <-2.5). * Postmenopausal women and men age 50 and older with low bone mass/osteopenia (T-score between -1.0 and -2.5) by DXA and 10-year major osteoporotic fracture greater than 20% or a 10-year probability of hip fracture greater than 3%. These fracture risks are supplied above in the FRAX score, if applicable. * Clinician judgement and/or patient preferences may indicate treatment for people with 10-year fracture probabilities above or below these levels. Dictated by: Dictated on workstation # [id number]
== END ==
LOC: RAD 13:42
PROVIDERS: ATTEND Family Medicine
DX: Z79.51 Long term (current) use of inhaled steroids (principal)
CPT/HCPCS: 77080